=== PATIENT | male | born 1975 | race Two or more races ===

== ENCOUNTER 2024-08-04 15:30 | Emergency (ER) | payer MEDICAID, SELFPAY ==
[2024-08-04 15:49] VITALS: BP 169/113; PULSE 113; RESP 18; TEMP 37.2; O2SAT 96; BMI 37.0
--- NOTE | 2024-08-04 16:07 | XR_ITS ---
Examination: Left elbow 3 views Technique: Elbow AP, oblique, lateral 3 views Exam date and time: 24 1619 hrs. Indications: Patient fell today with into the elbow, elbow pain. Findings: Acute fractures radial head and neck, without major displacement No elbow dislocation Impression: Acute fractures radial head and neck.
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
== END 2024-08-04 18:00 | disposition home or self-care (01) ==
PROVIDERS: Emergency Provider Emergency Medicine; PCP Nurse Practitioner Family
DX: S52.122A Displaced fracture of head of left radius, initial encounter for closed fracture (principal); V98.8XXA Other specified transport accidents, initial encounter
CPT/HCPCS: 29105; 73080; 99283; A4565

== ENCOUNTER 2025-01-18 20:07 | Inpatient (IN) | payer MEDICAID, SELFPAY ==
[2025-01-18 20:14] VITALS: BP 110/77; PULSE 90; RESP 20; TEMP 36.8; O2SAT 95; BMI 33.9
--- NOTE | 2025-01-18 20:15 | EKG_ITS ---
[facility] Test Date: 2025-01-18 Pat Name: LILIA ROCHE Department: Room: - Gender: Male Puller Out: : 1975 Requested By: Montana Bundy Order Number: [id number] Reading MD: Montana Bundy Measurements Intervals [place] Rate: 100 P: 20 NM: 136 QRS: 43 QRSD: 90 T: 48 QT: 334 QTc: 431 Interpretive Statements SINUS TACHYCARDIA NONSPECIFIC T-WAVE ABNORMALITY ABNORMAL RHYTHM ECG Compared to ECG 01/04/2024 07:49:33 T-wave abnormality now present Sinus rhythm no longer present Sinus arrhythmia no longer present /store/S0/[id number]/ecg/[id number].pdf
--- NOTE | 2025-01-18 20:15 | PD.EDABDPN ---
ED Abdominal Pain RME/HPI General Chief Complaint: Abdominal Pain Stated complaint: ABDOMINAL PAIN Time seen by provider: 01/18/25 20:12 Arrival date/time: 01/18/25 20:07 RME / HPI RME / HPI narrative: Dr. Tirado?s Main ED Evaluation: 49yo male with a history of HTN (no medications) JUNE from home presents to the ED for a chief complaint of RLQ pain x 2 days. Patient states his pain radiates down to his testicles. Patient states his pain got significantly worse today and was unable to tolerate the pain, so he came in for evaluation. Patient reports one emetic episode today and continues to feel nauseous. Patient denies any fever, chills, dysuria or any other associated symptoms. PSH includes cholecystectomy. NKA. Related Data Previous Rx's ?Medication ?Instructions ?Recorded ondansetron 4 mg disintegrating 4 mg PO Q12H PRN nausea and 01/04/24 tablet vomiting #20 tabs ondansetron 4 mg disintegrating 4 mg PO Q12H PRN nausea and 01/04/24 tablet vomiting #20 tabs prochlorperazine 25 mg [address] Q12H PRN nausea and 01/04/24 suppository (Compazine) vomiting #12 ea prochlorperazine 25 mg [address] BID PRN nausea and 01/04/24 suppository (Compro) vomiting #12 ea tramadol 50 mg tablet 50 mg PO Q6H PRN pain #20 tabs 01/28/24 Allergies Allergy/AdvReac Type Severity Reaction Status Date / Time No Known Allergies Allergy Verified 08/04/24 15:31 Review of Systems Review of Systems Systems Reviewed: All systems reviewed, normal except as documented Past Medical History Past Medical History CARDIAC: Negative Congestive Heart Failure RESPIRATORY: Negative Chronic Obstructive Pulmonary Disease (COPD) GENITOURINARY: Negative Renal Disease ENDOCRINE: Negative Diabetes Mellitus Type 1 or Diabetes Mellitus Type 2 Social History SMOKING STATUS: Never smoker ED Exam Narrative Physical exam: GENERAL APPEARANCE: alert and oriented x 4, well-developed, well-nourished, in [id number] pain distress VITALS: All vitals were reviewed and the pulse ox is 95% on room air, which is normal according to my interpretation. HEENT: Normocephalic, atraumatic; pupils equal, round, reactive to light; EOMI; mucous membranes pink, moist; oropharynx clear NECK: Supple LUNGS: CTABL; no wheezes, no rales, no rhonchi HEART: Regular rate, regular rhythm; normal S1, S2; no murmurs ABDOMEN: non distended; normal BS; soft, severe RLQ tenderness with rebound and voluntary guarding EXTREMITIES: atraumatic; no edema NEUROLOGIC: awake; alert and oriented x4; cranial nerves II-XII grossly intact; no focal sensory or motor deficits PSYCHIATRIC: appropriate mood and affect SKIN: warm, dry, normal color; no rashes Course Quality Measures Possible source: GI tract/intra-abdominal Blood cultures ordered: yes Antibiotic ordered: Yes Pertinent labs: 01/18/25 01/19/25 20:55 01:19 Lactic Acid 2.1 H mMol/L Pending (0.4-2.0) Procalcitonin 0.09 ng/ml (0.0-0.49) sepsis Orders Category Date Time Status CT Screening NOW Care 01/18/25 20:18 Active Steel Rod Buster STAT Care 01/18/25 20:15 Active Continuous Pulse Oximetry STAT Care 01/18/25 20:15 Completed EKG (ED ONLY) *Do not use* NOW Care 01/18/25 20:15 Completed Insert IV STAT Care 01/18/25 20:15 Active NPO STAT Care 01/18/25 20:15 Active Consult to General Surgery Stat Cons 01/19/25 01:[address] abdomen pelvis wo/w con Stat Exams 01/18/25 20:17 Taken EKG (ED Only) Stat Exams 01/18/25 20:15 Draft XR chest 1V portable Stat Exams 01/18/25 20:17 Completed Alcohol, Blood Medical Stat Lab 01/18/25 20:55 Completed Blood Culture (Lab) Stat Lab 01/18/25 20:58 Received CBC Stat Lab 01/18/25 20:55 Completed Comprehensive Metabolic Panel Stat Lab 01/18/25 20:55 Completed Drug Screen,Urine Stat Lab 01/18/25 20:56 Completed Lactate (Lactic Acid) Stat Lab 01/18/25 20:55 Completed Lactic Acid, 3 HR Stat Lab 01/19/25 01:19 Received Lipase Stat Lab 01/18/25 20:55 Completed Magnesium Stat Lab 01/18/25 20:55 Completed Procalcitonin Stat Lab 01/18/25 20:55 Completed Prothrombin Time with INR Stat Lab 01/18/25 20:55 Completed Urinalysis Stat Lab 01/18/25 20:56 Completed Acetaminophen Ivpb [Ofirmev Inj] Med 01/18/25 22:07 Discontinued 1,000 mg in 100 ml IV X1 HYDROmorphone INJ [Dilaudid Inj] Med 01/18/25 20:15 Discontinued 1 mg IVP X1 ONE HYDROmorphone INJ [Dilaudid Inj] Med 01/19/25 01:05 Discontinued 1 mg IVP X1 ONE Ondansetron Inj [Zofran Inj] Med 01/18/25 20:15 Discontinued 4 mg IV X1 ONE Piper/Tazo 3.375 gm Premix [Zosyn] Med 01/18/25 20:16 Discontinued 3.375 gm in 50 ml IV X1 Sodium Chloride 0.9% 1000 ml [Ns] 1,000 ml Med 01/18/25 20:15 Discontinued IV 999 mls/hr Sodium Chloride 0.9% 1000 ml [Ns] 1,000 ml Med 01/19/25 00:50 Discontinued IV 999 mls/hr Vital Signs Vital signs: Vital Signs Temperature 98.3 F 01/18/25 20:14 Pulse Rate 90 01/18/25 20:14 Respiratory Rate 20 01/18/25 20:14 Blood Pressure 110/77 01/18/25 20:14 Pulse Oximetry (%) 95 01/18/25 20:14 Oxygen Delivery Method Room Air 01/18/25 20:14 Abdominal Pain MDM MDM Narrative MDM Narrative:: Scribe Attestation: 01/18/25 Cassy Richards am scribing for and in the presence of Dr. Tirado. I offered the patient narcotics on my initial evaluation, but he states I don't take narcotics . He initially agreed to pain medication, but later declined. IV Tylenol ordered. 0101: Sepsis alert initiated due to the patient being tachycardic, tachypneic, and having an elevated WBC count. Orders made at this time are congruent with ED Adult Sepsis Order List. NS IVF was started at 2220. 0105: Patient states he is now willing to take narcotics. Dilaudid ordered. 0157: Discussed case with Dr. Parmar from general surgery regarding consultation. Discussed patients ED course, exam findings, labs, and radiology results. States she will admit the patient. Patient data External records reviewed:: [facility] previous records (Per chart review, patient was seen here on 01/04/24 for abdominal pain.) Clinical information provided by:: patient Social determinants that could affect healthcare access:: none Patient has the following chronic illnesses:: none How is presenting disease/condition affected by chronic disease/condition?: no chronic disease Evaluation data The following diagnostics were reviewed and interpreted by me:: lab results, radiology exam(s) and EKG tracing(s) Lab and/or radiology exams considered but not ordered:: none Interpretation Summary: WBC count is 18.0, PT and INR are normal, Glucose is 181, Lactic Acid is 2.1, Lipase is normal, Procalcitonin is normal, UA is unremarkable, UDS is negative, Blood Alcohol is negative, according to my interpretation. CXR shows normal cardiac silhouette, normal sharp diaphragmatic edge, no infiltrates, normal costophrenic angles, according to my interpretation. EKG done at 2100, sinus tachycardia, rate of 100, normal axis, no ectopy, no acute ischemia, according to my interpretation. Telerad Preliminary Report Draft Patient: LILIA ROCHE. Record#: [id number] Birthdate: 1975 Age/Sex: 49 / M Location: [facility] Attending Dr: Ordering Physician: Date of Service: Procedure(s): Accession Number(s): cc: ~ CT scan of the abdomen and pelvis without and with intravenous contrast (axial sections with sagittal and coronal reformats): January 18, 2025 at 2358 hours Clinical History: Right lower quadrant pain with nausea and vomiting. Comparison: No prior study is available for comparison. Findings: The appendix is thickened, measuring 1.8 cm (images 145-165) with wall enhancement and extensive periappendiceal fat stranding and a trace fluid. There is a 1.3 cm appendicolith at its base. There is no free air. No evidence of bowel obstruction. There is mildly prominent fluid filled small bowel loops and demonstrating scattered air-fluid levels, suggestive of ileus. There are multiple colonic diverticula with evidence of subtle pericolic fat stranding Fatty infiltration of the liver is noted. The gallbladder is surgically absent. There is a 7 mm calculus in the right kidney. There is mild splenomegaly. The pancreas, adrenals and left kidney are unremarkable. The urinary bladder is unremarkable. There is mild prostatomegaly. There is small fat-containing right inguinal hernias. Degenerative changes are identified in the spine. 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 There is anterolisthesis of L5 on S1. Bibasilar streaky atelectasis is present. A small hiatal hernia is present. Impression: 1. Acute appendicitis with extensive periappendiceal fat stranding and a trace fluid, the possibility of evolving microperforation cannot be entirely excluded. Recommend clinical correlation and follow-up. 2. Multiple colonic diverticula with evidence of subtle pericolic fat stranding, evolving diverticulitis cannot be entirely excluded. Recommend follow-up. 3. Other findings as described above. Report Electronically Signed By: Charles Mckay 01/19/2025 1:50:28 AM Medications / Prescriptions Medications or Prescriptions considered but not ordered:: none Medication administrations:: Medication Administration History Discontinued Medications Hydromorphone HCl (Hydromorphone Inj 2 Mg/Ml Vial) 1 mg IVP X1 ONE Stop: 01/18/25 20:16 Last Admin: 01/18/25 22:21 Dose: Not Given Documented By: PRAVEEN Non-Admin Reason: Cancelled by Provider Hydromorphone HCl (Hydromorphone Inj 2 Mg/Ml Vial) 1 mg IVP X1 ONE Stop: 01/19/25 01:06 Sodium Chloride (Ns) 1,000 mls @ 999 mls/hr IV .Q1H1M ONE Stop: 01/18/25 21:15 Last Admin: 01/18/25 22:20 Dose: 999 mls/hr Documented By: PRAVEEN Piperacillin/Tazobactam/Dextrose (Zosyn) 3.375 gm in 50 mls @ 100 mls/hr IV X1 ONE Stop: 01/18/25 20:45 Last Admin: 01/18/25 22:20 Dose: 100 mls/hr Documented By: PRAVEEN Acetaminophen (Ofirmev Inj) 1,000 mg in 100 mls @ 250 mls/hr IV X1 ONE Stop: 01/18/25 22:30 Last Admin: 01/18/25 22:18 Dose: 250 mls/hr Documented By: PRAVEEN Sodium Chloride (Ns) 1,000 mls @ 999 mls/hr IV .Q1H1M ONE Stop: 01/19/25 01:50 Ondansetron HCl (Ondansetron Inj 2 Mg/Ml Inj 2 Ml) 4 mg IV X1 ONE; Protocol Stop: 01/18/25 20:16 Last Admin: 01/18/25 22:21 Dose: Not Given Documented By: PRAVEEN Non-Admin Reason: Cancelled by Provider see above Consultations Consultation(s) initiated? (list below): Yes Diagnosis Differential diagnosis abdominal pain: acute appendicitis, diverticulitis, small bowel obstruction and other (renal colic) Most likely diagnosis given after review of the tests above:: acute appendicitis Admission Indicated Admission indicated?: indicated Admission Request Was there a request for admission?: Yes Admission Attestation Admission request attestation: Discussed case with [] from Hospitalist service regarding admission. Discussed patients ED course, exam findings, labs, and radiology results. The Hospitalist [agrees,declines] to accept the patient for admission. Disposition Plan Disposition Plan: Admit Critical Care Time Critical Care Time Critical Care Time: Yes Total Critical Care Time (min.): 40 Attestation: The high probability of sudden, clinically significant deterioration in the patient?s condition required the highest level of my preparedness to intervene urgently. The services I provided to this patient were to treat and/or prevent clinically significant deterioration. Services included the following: chart data review, reviewing nursing notes and/or old charts, documentation time, furniture rental consultant collaboration regarding findings and treatment options, medication orders and management, direct patient care, vital sign assessments and ordering, interpreting and reviewing diagnostic studies and lab tests. Aggregate critical care time includes only time during which I was engaged in work directly related to the patient?s care, as described above, whether at bedside or elsewhere in the Emergency Department. It did not include time spent performing other reported procedures or the services of residents, students, nurses or physician assistants. Discharge Plan Plan Patient Disposition: Admit Acute Care w/in Hospital Discharge Disposition comment: Admitted to Dr. Parmar Prescriptions/Referrals Prescriptions/Med Rec: No Action prochlorperazine [Compro] 25 mg suppository [address] BID PRN (Reason: nausea and vomiting) Qty: 12 0RF ondansetron 4 mg tablet,disintegrating 4 mg PO Q12H PRN (Reason: nausea and vomiting) Qty: 20 0RF prochlorperazine [Compazine] 25 mg suppository [address] Q12H PRN (Reason: nausea and vomiting) Qty: 12 0RF ondansetron 4 mg tablet,disintegrating 4 mg PO Q12H PRN (Reason: nausea and vomiting) Qty: 20 0RF tramadol 50 mg tablet 50 mg PO Q6H PRN (Reason: pain) Qty: 20 0RF Referrals: No Primary/Family,Physician [Primary Care Provider] - In 1 week Problem List Clinical Impression: Acute appendicitis Patient/Caregiver Discharge Instructions Print Language: Spanish Stand Alone Forms: [facility] Award Info., Patient Portal Info Letter
--- NOTE | 2025-01-18 20:17 | XR_ITS ---
Examination: AP chest single view TECHNIQUE: AP portable semiupright chest single view Date and time: January 18, 2025 2103 hours INDICATIONS: Lower chest pain and abdominal pain today FINDINGS: Suspicious for early left basilar pneumonia. Normal heart size Mild osteopenia. No free air IMPRESSION: Suspicious for early left base pneumonia
--- NOTE | 2025-01-18 20:17 | XR_ITS ---
Examination: CT abdomen, without intravenous contrast. CT pelvis, without intravenous contrast. CT abdomen, with intravenous contrast. CT pelvis, with intravenous contrast. 2-D sagittal coronal reconstructions. Date and time of exam:January 18, 2025 11:58 PM INDICATIONS: Onset right-sided flank pain today, history kidney stones COMPARISON: January 04, 2024 CTDI: vol (mGy) 10.6 DLP: (mGycm) 643 Technique: Multiple 3.0 axial images of the abdomen and pelvis without intravenous contrast, 3.0 mm slice thickness. Multiple 3.0 postcontrast images abdomen and pelvis also obtained, post intravenous injection 60 cc [id number] 2-D sagittal and coronal reconstructions. Low dose protocols were performed. One or more of the following dose reduction techniques were used; automated exposure control, adjustment of the mA and/or KV according to patient size, use of iterative reconstruction technique. Findings: Diffuse fatty infiltration throughout the liver Absent gallbladder The spleen is not enlarged No pancreatic or adrenal mass 7 mm upper pole right renal calculus Aorta normal size Acute appendicitis, enlarged inflamed appendix with appendicoliths and prominent pericecal inflammatory changes, appendix medial to the cecum coronal images 69 through 82 No martinez pericecal abscess Small bowel ileus Mild prostatomegaly Tiny fat-containing inguinal hernia Grade 1 spondylolisthesis of L5 on S1 with advanced degenerative disc disease at this level Impression: Acute appendicitis with localized perforation No pelvic abscess
[2025-01-18 20:53] VITALS: PULSE 94; RESP 22; O2SAT 95
[2025-01-18 21:02] LABS: Collection Type, Urine Clean Catch
[2025-01-18 21:19] LABS: Lactate (Lactic Acid) 2.1 mMol/L (0.4-2.0)
[2025-01-18 21:22] LABS: Basophils # (Auto) 0.1 Thou/mm3 (0.0-0.2); Basophils % (Auto) 0 % (0-2.5); Eosinophils % (Auto) 0 % (0-10); Hematocrit 44.7 % (41.0-53.0); Hemoglobin 15.9 g/dL (13.5-16.0); Immature Granulocytes % (Auto) 0 % (0-0); Immature Granulocytes Auto 0.07 Thou/mm3 (0.00-0.00); Lymphocytes % (Auto) 5 % (10-50); Mean Corpuscular HGB Conc 35.6 g/dl (31.0-37.0); Mean Corpuscular Hemoglobin 29.6 pg (25.0-35.0); Mean Corpuscular Volume 83 fL (80-100); Monocytes # (Auto) 1.3 Thou/mm3 (0.0-0.8); Monocytes % (Auto) 7 % (0-12); Neutrophils # (Auto) 15.6 Thou/mm3 (1.8-7.7); Neutrophils % (Auto) 87 % (37-80); Nucleated Red Blood Cell % 0 /100 WBC (0); Platelet Count 272 Thou/mm3 (140-440); RDW Standard Deviation 37.9 fL (35.1-43.9); Red Blood Count 5.37 Miln/mm3 (4.50-5.90)
[2025-01-18 21:23] LABS: Amphetamine/Methamp Scrn,U Negative (Negative); Barbiturate Screen,Urine Negative (Negative); Benzodiazepines Screen,Urine Negative (Negative); Benzoylecgonine Screen, Ur Negative (Negative); Fentanyl Screen,Urine Negative (Negative); Opiate Screen,Urine Negative (Negative); THC Screen,Urine Negative (Negative)
[2025-01-18 21:27] LABS: Bilirubin,Urine Negative (Negative); Blood,Urine Negative (Negative); Clarity,Urine Clear (Clear/Hazy); Color,Urine Yellow (Lt Yel-Yel); Glucose, Urine Negative (Negative); Ketones,Urine 1+ (Negative); Leukocyte Esterase,Urine Negative (Negative); Nitrite,Urine Negative (Negative); PH,Urine 5.5 (5.0-7.0); Protein,Urine Trace (Neg - Trace); Specific Gravity,Urine 1.032 (1.001-1.035); Urobilinogen,Urine Negative mg/dL (0.0-1.0)
[2025-01-18 21:40] LABS: Mucus,Urine 1+ /lpf; RBC,Urine 1 /hpf (0-3); Squamous Epithelial Cell,Urine 5 /hpf (0-5); WBC,Urine 2 /hpf (0-5)
[2025-01-18 21:43] LABS: INR 1.1 (0.9-1.3); Prothrombin Time 11.8 Seconds (9.0-12.2)
[2025-01-18 21:57] LABS: Alanine Aminotransferase 37 U/L (10-49); Albumin, Serum 4.9 gm/dL (3.5-5.0); Alcohol, Blood Medical < 3.0 mg/dL (0-10.0); Alkaline Phosphatase 71 U/L (46-116); Anion Gap 12 (7-16); Aspartate Amino Transferase 22 U/L (0-34); BUN/Creatinine Ratio 13 Ratio (12-20); Bilirubin,Total 0.7 mg/dL (0.3-1.2); Blood Urea Nitrogen 13 mg/dL (9-23); Calcium 9.4 mg/dL (8.3-10.6); Calcium (Corrected) 9.4 mg/dL (8.5-10.1); Carbon Dioxide 24.5 mMol/L (20.0-31.0); Chloride 103 mMol/L (98-107); Estimated Creatinine Clearance 116.2 mL/min (>60); Globulin 2.5 gm/dL (2.3-3.5); Glucose 181 mg/dL (74-106); Lipase 27 U/L (12-53); Magnesium 1.6 mg/dL (1.6-2.6); Osmolality,Calculated 282 (275-295); Potassium 4.1 mMol/L (3.4-5.1); Sodium 139 mMol/L (136-145); Total Protein 7.4 gm/dL (5.7-8.2); eGFR > 60 See Note
[2025-01-18 22:03] LABS: Procalcitonin 0.09 ng/ml (0.0-0.49)
[2025-01-18] MEDS: ACETAMINOPHEN IVPB 1,000 MG/100 ML VIAL 250 MG IV (22:18)
[2025-01-18] MEDS: PIPER/TAZO 3.375 GM PREMIX 3.375 GM/50 ML BAG IV (22:20)
[2025-01-18] MEDS: SODIUM CHLORIDE 0.9% 1000 ML 1,000 ML 999 ML IV (22:20)
[2025-01-18 23:15] VITALS: BP 151/98; PULSE 108; RESP 23; TEMP 37.5; O2SAT 93
[2025-01-19] VITALS (22 sets, daily range): BP systolic 112–144; BP diastolic 73–98; PULSE 74–127; RESP 15–27; TEMP 36.6–37.7; O2SAT 89–97; BMI 33.9
[2025-01-19 00:15] LABS: Reflex Lactate? Y
[2025-01-19 01:34] LABS: Lactic Acid, 3 HR 1.9 mMol/L (0.4-2.0)
--- NOTE | 2025-01-19 01:51 | PRELIM_ITS ---
CT scan of the abdomen and pelvis without and with intravenous contrast (axial sections with sagittal and coronal reformats): January 18, 2025 at 2358 hours Clinical History: Right lower quadrant pain with nausea and vomiting. Comparison: No prior study is available for comparison. Findings: The appendix is thickened, measuring 1.8 cm (images 145-165) with wall enhancement and extensive periappendiceal fat stranding and a trace fluid. There is a 1.3 cm appendicolith at its base. There is no free air. No evidence of bowel obstruction. There is mildly prominent fluid filled small bowel loops and demonstrating scattered air-fluid levels, suggestive of ileus. There are multiple colonic diverticula with evidence of subtle pericolic fat stranding Fatty infiltration of the liver is noted. The gallbladder is surgically absent. There is a 7 mm calculus in the right kidney. There is mild splenomegaly. The pancreas, adrenals and left kidney are unremarkable. The urinary bladder is unremarkable. There is mild prostatomegaly. There is small fat-containing right inguinal hernias. Degenerative changes are identified in the spine. 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 There is anterolisthesis of L5 on S1. Bibasilar streaky atelectasis is present. A small hiatal hernia is present. Impression: 1. Acute appendicitis with extensive periappendiceal fat stranding and a trace fluid, the possibility of evolving microperforation cannot be entirely excluded. Recommend clinical correlation and follow-up. 2. Multiple colonic diverticula with evidence of subtle pericolic fat stranding, evolving diverticulitis cannot be entirely excluded. Recommend follow-up. 3. Other findings as described above. Report Electronically Signed By: Charles Mckay 01/19/2025 1:50:28 AM [EST]
[2025-01-19] MEDS: HYDROmorphone INJ 2 MG/ML VIAL 1 MG IVP (02:25)
[2025-01-19] MEDS: SODIUM CHLORIDE 0.9% 1000 ML 1,000 ML 999 ML IV (02:25)
[2025-01-19] MEDS: HYDROmorphone INJ 2 MG/ML VIAL 0.5 MG IVP (06:37)
[2025-01-19] MEDS: PIPER/TAZO INJ 4.5 GM in SODIUM CHLORIDE 0.9% (POP) 100 ML IV ×3 (09:19→22:07)
[2025-01-19] MEDS: SODIUM CHLORIDE 0.9% 1000 ML 1,000 ML 125 ML IV (09:21)
[2025-01-19] MEDS: ONDANSETRON INJ 2 MG/ML INJ 2 ML 4 MG IV (09:56)
[2025-01-19] MEDS: MORPHINE SULF INJ 10 MG/ML VIAL 4 MG IVP ×2 (09:57→16:16)
--- NOTE | 2025-01-19 10:00 | PC.NURSE ---
Dr Parmar at bedside speaking with patient.
--- NOTE | 2025-01-19 10:17 | PD.SURHP ---
HPI Date of Admission 01/19/25 08:37 HPI 49M presenting with abdominal pain and nausea. Patient reports pain began 2 days ago in the morning, initially in the epigastrium but then radiating to the right lower quadrant, which progressively worsened prompting him to seek care in the ER. Pain associated with nausea and an episode of vomiting, with no dysuria or changes in bowel habits. In ER patient has had temp of 99, tachycardia and CT showing signs of acute appendicitis with localized perforation. Patient reports ongoing 10 out of 10 pain despite medications Of note pt has not undergone colonoscopy PMH: None PSH: Cholecystectomy Meds: None Allergies: NKDA Social history: Non-smoker Family history: No known CRC but two maternal uncles had pancreatic cancer Review of Systems Review of Systems ROS Unobtainable: All systems reviewed & no additional complaints except as documented Meds Home Medications and Allergies Allergies Allergy/AdvReac Type Severity Reaction Status Date / Time No Known Allergies Allergy Verified 08/04/24 15:31 Exam Vital Signs Temp Pulse Resp BP Pulse Ox O2 Del Method O2 Flow Rate 99.8 F 113 H 18 143/81 H 93 L Room Air 2 01/19/25 09:58 01/19/25 09:58 01/19/25 09:58 01/19/25 09:58 01/19/25 09:58 01/19/25 09:58 01/19/25 08:15 Constitutional Constitutional: mild distress Routine Respiratory Exam Respiratory: Present no resp distress Routine Abdominal Exam Abdominal: Present soft, tenderness (Moderate tenderness right lower quadrant) and distended (Mild distention); Absent rebound or guarding Results Results: Laboratory Laboratory results: results reviewed Results: Imaging CT scan - abdomen: report reviewed and image reviewed Assessment & Plan Plan 49M presenting with signs and symptoms of acute appendicitis with localized perforation. I explained to the patient that surgery in the setting of perforated appendicitis confers a risk of injury to nearby structures as well as the possibility of not being able to safely remove the appendix, and that antibiotics can be curative, however given his severe pain patient prefers to pursue surgery. I explained that I will perform diagnostic laparoscopy, with with appendectomy if it is safe, and that either way I can irrigate the area and may place a drain to prevent a secondary infection. I enumerated risks of bowel injury necessitating fecal diversion, need for conversion to laparotomy, bleeding and hernia. Patient expressed understanding and agrees to proceed OR for diagnostic laparoscopy, washout, possible appendectomy, possible drain placement Quality Measures Quality Measures sepsis Current suspected stage: sepsis Possible source: GI tract/intra-abdominal Blood cultures ordered: yes Antibiotic ordered: Yes
--- NOTE | 2025-01-19 10:52 | PC.CC ---
Patient is a 49 year-old male who presents to the hospital for Acute Appendicitis with Perforation. Queenie GOULD made llra-[id number] contact with patient. ASW introduced self, role, and reason for visit. Patient appeared alert and oriented to self, location, and situation. Patient was pleasant and engaged in initial assessment. Patient confirmed information on demographics and reports to living with his sister and daughter, Trina Garland . Per patient, if he is unable to make his own medical decisions his daughter would be his medical decision maker. At home patient ambulates independently and completes his own ADLs. Patient does not use any DME at home. Patient does not have a primary care provider. Upon discharge patient plans to return home. relocation services specialist to follow up with any discharge needs.
--- NOTE | 2025-01-19 11:23 | PC.NURSE ---
Report given to Rn, patient will be going to surgery.
--- NOTE | 2025-01-19 11:39 | PC.NURSE ---
@ 0700 am Assumed care of patient, patient appears to be sleeping in no distress. Patient opens eyes to name and responds. Call light is within reach.
--- NOTE | 2025-01-19 12:56 | ESOP_ITS ---
Date of Procedure 01/19/25 Pre Op Diagnosis Acute appendicitis Post Op Diagnosis Gangrenous perforated appendicitis Procedure Diagnostic laparoscopy, partial appendectomy, washout, drain placement Findings Perforated appendix with gangrenous base Procedure Description After discussion of risks and benefits including the possibility that the appendix could not be safely removed, patient was brought to the operating room, SCDs were placed and general anesthesia was induced. He had already received preoperative antibiotics and was prepped and draped in the usual sterile fashion after timeout an infraumbilical incision was made with a #15 blade and the skin was elevated. A Veress needle was placed through the incision and proper posit ioning was confirmed with a drop test. Of note a long Veress needle was required as the standard Veress needle did not reach the peritoneum. Once proper positioning was confirmed the abdomen was insufflated to 15 mmHg and the Veress needle was exchanged for a 5 mm camera using a Visiport technique. Again a long port was required as the standard 5 mm port did not reach the peritoneum. There were no signs of injury from the point of entry. 2 additional ports were placed under direct vision, one 5 mm in the suprapubic region and one 5 mm in the left lower quadrant. Patient was placed in Trendelenburg with left side down. The small bowel was noted to be dilated which was consistent with a CT finding of ileus, and there was pus in the right lower quadrant as well as in the pelvis. The appendix was easily identified by tracing attending of the colon and it was noted to have a gangrenous base from which pus was emanating. I opted not to dissect out this portion of the appendix due to concern that it would not heal well and that there would be dehiscence of the staple line. Instead I dissected the mesoappendix from the midportion of the appendix and transected at this level using a 45 mm blue load stapler. The area was gently irrigated and there were no signs of bleeding. The pelvis was also irrigated and there were no signs of bleeding. A 15 Tongan round drain was placed through the left lower quadrant port into the right lower quadrant and sutured to the skin using a 2-0 nylon. The specimen was removed in an Endo Catch bag via the infraumbilical port and the infraumbilical fascia was closed with 0 Vicryl suture using a Guerrero-Hema. Incisions were irrigated and infiltrated with half percent Marcaine for a total of 20 cc. Incisions were closed with 4-0 Monocryl and reinforced with Dermabond. Patient was extubated and brought to PACU in stable condition Pathology / specimen Other (Appendix) Estimated Blood Loss 20 Surgeon Kaylene Parmar MD Surgical Staff Operation Date: 01/19/25 11:30 <No data on this case meets the specified criteria>
--- NOTE | 2025-01-19 13:01 | SUR.PHASEI ---
received report from SHANIKA Neri and LONNIE Conklin. Pt resting with eyes closed, but arousable to voice and touch. x2 dermabond dressing to abd CDI, x1 dressing 4x4 gauze to abd CDI. DAI intact, draining well. IV in place, no s/s of infiltration or redness to site. abd soft on palpation.
--- NOTE | 2025-01-19 13:27 | SUR.PHASEI ---
pt continues to be asleep and resting well. vss. no distress noted. dressings remain CDI
--- NOTE | 2025-01-19 13:35 | SUR.PHASEI ---
VSS, dressings remain CDI, pt denies any pain at this time, no distress noted. offiered patient ice chips and water, pt declined.
--- NOTE | 2025-01-19 13:58 | SUR.PHASEI ---
pt continues to rest, pt is snoring however easily arousable to voice and touch. dressings remain CDI, VSS, NO DISTRESS NOTED
--- NOTE | 2025-01-19 14:20 | SUR.PHASEI ---
Pt continues to recover well. Pt resting and snoring, vss, dressings remain CDI, DAI draining well.
--- NOTE | 2025-01-19 15:11 | SUR.PHASEI ---
Pt resting, aroused by voice. Pt A&o X4. Pt recovering well, vss. dressing remains CDI, IV remains free of infiltration or redness. pt denies any pain at this time. report given to SHANIKA Cui.
[2025-01-19] MEDS: SODIUM CHLORIDE 0.9% 1000 ML 1,000 ML 50 ML IV (16:14)
[2025-01-19] MEDS: ACETAMINOPHEN IVPB 1,000 MG/100 ML VIAL 250 MG IV (17:22)
[2025-01-19] MEDS: KETOROLAC INJ 30 MG/ML VIAL 15 MG IVP (22:02)
[2025-01-20] VITALS (8 sets, daily range): BP systolic 123–167; BP diastolic 81–104; PULSE 79–105; RESP 16–20; TEMP 36.1–36.6; O2SAT 92–94
[2025-01-20] MEDS: ACETAMINOPHEN IVPB 1,000 MG/100 ML VIAL 250 MG IV ×4 (00:07→22:09)
[2025-01-20 05:47] LABS: Basophils % (Auto) 0 % (0-2.5); Eosinophils % (Auto) 0 % (0-10); Hemoglobin 14.7 g/dL (13.5-16.0); Immature Granulocytes % (Auto) 1 % (0-0); Immature Granulocytes Auto 0.11 Thou/mm3 (0.00-0.00); Lymphocytes % (Auto) 5 % (10-50); Mean Corpuscular Hemoglobin 29.5 pg (25.0-35.0); Mean Corpuscular Volume 84 fL (80-100); Monocytes # (Auto) 1.2 Thou/mm3 (0.0-0.8); Monocytes % (Auto) 6 % (0-12); Neutrophils # (Auto) 17.1 Thou/mm3 (1.8-7.7); Neutrophils % (Auto) 88 % (37-80); Nucleated Red Blood Cell % 0 /100 WBC (0); Platelet Count 209 Thou/mm3 (140-440); RDW Standard Deviation 38.6 fL (35.1-43.9); Red Blood Count 4.98 Miln/mm3 (4.50-5.90); White Blood Count 19.4 Thou/mm3 (3.8-10.6)
[2025-01-20] MEDS: PIPER/TAZO INJ 4.5 GM in SODIUM CHLORIDE 0.9% (POP) 100 ML IV ×3 (05:52→22:09)
[2025-01-20 06:09] LABS: Anion Gap 7 (7-16); BUN/Creatinine Ratio 13 Ratio (12-20); Blood Urea Nitrogen 13 mg/dL (9-23); Carbon Dioxide 24.6 mMol/L (20.0-31.0); Chloride 105 mMol/L (98-107); Estimated Creatinine Clearance 116.2 mL/min (>60); Glucose 136 mg/dL (74-106); Osmolality,Calculated 275 (275-295); Phosphorous 2.7 mg/dL (2.4-5.1); Potassium 3.7 mMol/L (3.4-5.1); Sodium 137 mMol/L (136-145); eGFR > 60 See Note
[2025-01-20] MEDS: MORPHINE SULF INJ 10 MG/ML VIAL 4 MG IVP (06:41)
[2025-01-20] MEDS: LIDOCAINE 5% 1 PATCH TOP (10:00)
--- NOTE | 2025-01-20 10:05 | PC.NURSE ---
Pt feeling okay and wants to try a regular diet. Dr. maguire discontinued IV tylenol and morphine. switched to PO pain meds. Dr. Maguire also added lidcaine pain patch.
[2025-01-20] MEDS: GABAPENTIN 300 MG CAPSULE PO ×2 (11:25→20:41)
[2025-01-20] MEDS: MORPHINE SULF INJ 10 MG/ML VIAL 4 MG IV ×3 (11:25→21:32)
--- NOTE | 2025-01-20 11:30 | PC.NURSE ---
Pt complaining of severe pain. Does not want to try the PO medications. Dr. maguire notified. Dr leonardo in orders for patient to begin IV morphine and gabapentin.
--- NOTE | 2025-01-20 13:00 | PC.NURSE ---
Pt did not eat lunch. Not tolerating food at this time. Pt complains that morphine is only lasting for a short time and pt is having severe pain again. Pt does not want to try the gabapentin, or toradol.
[2025-01-20] MEDS: hydrALAZINE INJ 20 MG/ML VIAL 10 MG IV (13:15)
--- NOTE | 2025-01-20 13:17 | PC.NURSE ---
Pt's blood pressure has been elevated today. Dr. Parmar aware. Order was placed for hydralazine with parameters
--- NOTE | 2025-01-20 15:10 | PC.NURSE ---
Pt complaining that he is in severe pain. Encouraged patient to get up in bed and try to move around. pt had one occurrence of vomit Contacted Dr. Parmar. said the episode of vomit is normal. added IV tylenol and PO tramadol. Pt does not want to take tramadol or try the IV tylenol. Encouraged patient to try the IV tylenol and continue the morphine when it is due. Pt has agreed.
--- NOTE | 2025-01-20 16:52 | PC.NURSE ---
[facility] down time occurred on 01/20/2025 from [id number].
[2025-01-20] MEDS: SODIUM CHLORIDE 0.9% 1000 ML 1,000 ML 50 ML IV (17:29)
--- NOTE | 2025-01-20 18:00 | PC.NURSE ---
Went by to check on patient. Patient resting in bed, sleeping. No signs of distress or pain. will continue to assess.
[2025-01-20] MEDS: DOCUSATE SOD 100 MG CAPSULE PO (20:41)
[2025-01-21] VITALS (10 sets, daily range): BP systolic 133–165; BP diastolic 98–121; PULSE 69–115; RESP 16–20; TEMP 36.2–37.1; O2SAT 92–98
[2025-01-21] MEDS: MORPHINE SULF INJ 10 MG/ML VIAL 4 MG IV ×5 (01:49→23:11)
[2025-01-21] MEDS: ACETAMINOPHEN IVPB 1,000 MG/100 ML VIAL 250 MG IV ×3 (04:04→17:36)
[2025-01-21] MEDS: PIPER/TAZO INJ 4.5 GM in SODIUM CHLORIDE 0.9% (POP) 100 ML IV ×3 (05:19→21:21)
[2025-01-21 05:54] LABS: Basophils % (Auto) 0 % (0-2.5); Eosinophils # (Auto) 0.1 Thou/mm3 (0.0-0.5); Eosinophils % (Auto) 0 % (0-10); Hematocrit 41.5 % (41.0-53.0); Hemoglobin 14.5 g/dL (13.5-16.0); Immature Granulocytes % (Auto) 1 % (0-0); Immature Granulocytes Auto 0.07 Thou/mm3 (0.00-0.00); Lymphocytes # (Auto) 1.3 Thou/mm3 (1.0-4.8); Lymphocytes % (Auto) 9 % (10-50); Mean Corpuscular HGB Conc 34.9 g/dl (31.0-37.0); Mean Corpuscular Hemoglobin 29.4 pg (25.0-35.0); Mean Corpuscular Volume 84 fL (80-100); Monocytes # (Auto) 1.2 Thou/mm3 (0.0-0.8); Monocytes % (Auto) 8 % (0-12); Neutrophils # (Auto) 12.6 Thou/mm3 (1.8-7.7); Neutrophils % (Auto) 82 % (37-80); Nucleated Red Blood Cell % 0 /100 WBC (0); Platelet Count 211 Thou/mm3 (140-440); RDW Standard Deviation 40.3 fL (35.1-43.9); Red Blood Count 4.94 Miln/mm3 (4.50-5.90); White Blood Count 15.3 Thou/mm3 (3.8-10.6)
[2025-01-21 06:14] LABS: Anion Gap 10 (7-16); BUN/Creatinine Ratio 15 Ratio (12-20); Blood Urea Nitrogen 12 mg/dL (9-23); Calcium 8.8 mg/dL (8.3-10.6); Carbon Dioxide 25.1 mMol/L (20.0-31.0); Chloride 105 mMol/L (98-107); Creatinine (Component) 0.8 mg/dL (0.6-1.3); Estimated Creatinine Clearance 145.2 mL/min (>60); Glucose 118 mg/dL (74-106); Magnesium 2.1 mg/dL (1.6-2.6); Osmolality,Calculated 280 (275-295); Potassium 3.9 mMol/L (3.4-5.1); Sodium 140 mMol/L (136-145); eGFR > 60 See Note
--- NOTE | 2025-01-21 09:25 | PD.SURPROG ---
Documentation for date of: 01/21/25 Subjective Subjective Brief History: 49M presenting with abdominal pain and nausea. Patient reports pain began 2 days ago in the morning, initially in the epigastrium but then radiating to the right lower quadrant, which progressively worsened prompting him to seek care in the ER. Pain associated with nausea and an episode of vomiting, with no dysuria or changes in bowel habits. In ER patient has had temp of 99, tachycardia and CT showing signs of acute appendicitis with localized perforation. Patient reports ongoing 10 out of 10 pain despite medications Of note pt has not undergone colonoscopy PMH: None PSH: Cholecystectomy Meds: None Allergies: NKDA Social history: Non-smoker Family history: No known CRC but two maternal uncles had pancreatic cancer Narrative: Pt reports stable pain, he was having nausea yesterday so returned to [facility]D but states this is improved he just still has minimal appetite. He has passed gas but not yet had a BM, remaining afebrile, walked a bit yesterday Exam Vital Signs Temp Pulse Resp BP Pulse Ox O2 Del Method O2 Flow Rate 97.3 F 106 H 18 157/121 H 92 L Room Air 1 01/21/25 08:00 01/21/25 08:00 01/21/25 08:00 01/21/25 08:00 01/21/25 08:00 01/21/25 08:00 01/21/25 04:00 Constitutional Constitutional: no acute distress Routine Respiratory Exam Respiratory: Present no resp distress Routine Abdominal Exam Abdominal: Present soft, tenderness (moderate lower abd tenderness), distended (moderate distention) and drain (DAI with serosanguinous output); Absent rebound or guarding Results Results: Laboratory Laboratory results: results reviewed Assessment & Plan Plan 49M presenting with signs and symptoms of acute appendicitis with localized perforation s/p diagnostic laparoscopy, appendectomy, washout and drain placement 01/19, gradually recovering Pain control PRN (due to his history pt declines PO narcotics) CLD, advance as tolerated Encourage OOB/ambulation Procedures Procedures Diagnostic laparoscopy, partial appendectomy, washout, drain placement
[2025-01-21] MEDS: SOD PHOS ADDITIVE 30 MMOL in SODIUM CHLORIDE 0.9% 500 ML 500 ML 62.5 MMOL IV (09:58)
[2025-01-21] MEDS: GABAPENTIN 300 MG CAPSULE PO ×2 (10:01→21:21)
[2025-01-21] MEDS: hydrALAZINE INJ 20 MG/ML VIAL 10 MG IV ×2 (10:01→12:52)
[2025-01-21] MEDS: traMADol HCL 50 MG TABLET PO (14:32)
[2025-01-22] VITALS (9 sets, daily range): BP systolic 133–153; BP diastolic 80–102; PULSE 91–115; RESP 18–96; TEMP 36.3–37.3; O2SAT 92–98; BMI 33.8
[2025-01-22] MEDS: ACETAMINOPHEN IVPB 1,000 MG/100 ML VIAL 250 MG IV ×3 (03:25→21:10)
[2025-01-22] MEDS: traMADol HCL 50 MG TABLET PO ×2 (03:46→17:20)
[2025-01-22] MEDS: PIPER/TAZO INJ 4.5 GM in SODIUM CHLORIDE 0.9% (POP) 100 ML IV ×3 (05:33→21:10)
[2025-01-22 05:47] LABS: Basophils % (Auto) 0 % (0-2.5); Eosinophils # (Auto) 0.1 Thou/mm3 (0.0-0.5); Eosinophils % (Auto) 1 % (0-10); Hematocrit 44.6 % (41.0-53.0); Hemoglobin 15.2 g/dL (13.5-16.0); Immature Granulocytes % (Auto) 1 % (0-0); Immature Granulocytes Auto 0.06 Thou/mm3 (0.00-0.00); Lymphocytes # (Auto) 1.2 Thou/mm3 (1.0-4.8); Lymphocytes % (Auto) 9 % (10-50); Mean Corpuscular HGB Conc 34.1 g/dl (31.0-37.0); Mean Corpuscular Hemoglobin 29.3 pg (25.0-35.0); Mean Corpuscular Volume 86 fL (80-100); Monocytes # (Auto) 1.3 Thou/mm3 (0.0-0.8); Monocytes % (Auto) 10 % (0-12); Neutrophils # (Auto) 10.6 Thou/mm3 (1.8-7.7); Neutrophils % (Auto) 80 % (37-80); Nucleated Red Blood Cell % 0 /100 WBC (0); Platelet Count 261 Thou/mm3 (140-440); RDW Standard Deviation 41.2 fL (35.1-43.9); Red Blood Count 5.19 Miln/mm3 (4.50-5.90); White Blood Count 13.3 Thou/mm3 (3.8-10.6)
[2025-01-22 06:15] LABS: Anion Gap 11 (7-16); BUN/Creatinine Ratio 16 Ratio (12-20); Blood Urea Nitrogen 11 mg/dL (9-23); Calcium 8.6 mg/dL (8.3-10.6); Carbon Dioxide 26.5 mMol/L (20.0-31.0); Chloride 103 mMol/L (98-107); Creatinine (Component) 0.7 mg/dL (0.6-1.3); Glucose 111 mg/dL (74-106); Magnesium 1.8 mg/dL (1.6-2.6); Osmolality,Calculated 279 (275-295); Phosphorous 1.9 mg/dL (2.4-5.1); Potassium 3.4 mMol/L (3.4-5.1); Sodium 140 mMol/L (136-145); eGFR > 60 See Note
[2025-01-22] MEDS: MORPHINE SULF INJ 10 MG/ML VIAL 4 MG IV ×3 (07:46→19:02)
[2025-01-22] MEDS: ONDANSETRON INJ 2 MG/ML INJ 2 ML 4 MG IV (07:51)
[2025-01-22] MEDS: GABAPENTIN 300 MG CAPSULE PO ×2 (09:21→20:23)
[2025-01-23] VITALS: BP 145/99; PULSE 104; TEMP 37.3; O2SAT 90
[2025-01-23] MEDS: traMADol HCL 50 MG TABLET PO (02:08)
[2025-01-23] MEDS: MORPHINE SULF INJ 10 MG/ML VIAL 4 MG IV ×3 (02:46→12:16)
[2025-01-23] MEDS: ACETAMINOPHEN IVPB 1,000 MG/100 ML VIAL 250 MG IV ×2 (03:25→10:58)
[2025-01-23 04:00] VITALS: BP 149/104; PULSE 97; RESP 16; TEMP 37.1; O2SAT 90
[2025-01-23] MEDS: PIPER/TAZO INJ 4.5 GM in SODIUM CHLORIDE 0.9% (POP) 100 ML IV (05:11)
[2025-01-23 05:17] LABS: Basophils # (Auto) 0.1 Thou/mm3 (0.0-0.2); Basophils % (Auto) 1 % (0-2.5); Eosinophils # (Auto) 0.2 Thou/mm3 (0.0-0.5); Eosinophils % (Auto) 2 % (0-10); Hematocrit 40.5 % (41.0-53.0); Hemoglobin 14.3 g/dL (13.5-16.0); Immature Granulocytes % (Auto) 1 % (0-0); Immature Granulocytes Auto 0.09 Thou/mm3 (0.00-0.00); Lymphocytes # (Auto) 1.6 Thou/mm3 (1.0-4.8); Lymphocytes % (Auto) 12 % (10-50); Mean Corpuscular HGB Conc 35.3 g/dl (31.0-37.0); Mean Corpuscular Hemoglobin 28.9 pg (25.0-35.0); Mean Corpuscular Volume 82 fL (80-100); Monocytes # (Auto) 1.5 Thou/mm3 (0.0-0.8); Monocytes % (Auto) 12 % (0-12); Neutrophils # (Auto) 9.7 Thou/mm3 (1.8-7.7); Neutrophils % (Auto) 74 % (37-80); Nucleated Red Blood Cell % 0 /100 WBC (0); Platelet Count 253 Thou/mm3 (140-440); RDW Standard Deviation 39.8 fL (35.1-43.9); Red Blood Count 4.94 Miln/mm3 (4.50-5.90); White Blood Count 13.1 Thou/mm3 (3.8-10.6)
[2025-01-23 06:09] LABS: Anion Gap 12 (7-16); BUN/Creatinine Ratio 17 Ratio (12-20); Blood Urea Nitrogen 10 mg/dL (9-23); Calcium 8.5 mg/dL (8.3-10.6); Carbon Dioxide 27.1 mMol/L (20.0-31.0); Chloride 102 mMol/L (98-107); Creatinine (Component) 0.6 mg/dL (0.6-1.3); Estimated Creatinine Clearance 193.6 mL/min (>60); Glucose 109 mg/dL (74-106); Magnesium 1.8 mg/dL (1.6-2.6); Osmolality,Calculated 281 (275-295); Phosphorous 2.6 mg/dL (2.4-5.1); Potassium 3.3 mMol/L (3.4-5.1); Sodium 141 mMol/L (136-145); eGFR > 60 See Note
--- NOTE | 2025-01-23 07:26 | PD.SURPROG ---
Documentation for date of: 01/22/25 Subjective Subjective Brief History: 49M presenting with abdominal pain and nausea. Patient reports pain began 2 days ago in the morning, initially in the epigastrium but then radiating to the right lower quadrant, which progressively worsened prompting him to seek care in the ER. Pain associated with nausea and an episode of vomiting, with no dysuria or changes in bowel habits. In ER patient has had temp of 99, tachycardia and CT showing signs of acute appendicitis with localized perforation. Patient reports ongoing 10 out of 10 pain despite medications Of note pt has not undergone colonoscopy PMH: None PSH: Cholecystectomy Meds: None Allergies: NKDA Social history: Non-smoker Family history: No known CRC but two maternal uncles had pancreatic cancer Narrative: Slight improvement in pain compared to yesterday, Tmax 99.1, mild HTN which is asymptomatic, had a BM but still prefers to stay on liquid diet as his appetite is minimal. DAI 450cc in past 24 hours which is serosanguinous, pt states he noticed increased output when he laid flat for the first time Exam Vital Signs Temp Pulse Resp BP Pulse Ox O2 Del Method O2 Flow Rate 98.7 F 97 16 149/104 H 90 L Room Air 1 01/23/25 04:00 01/23/25 04:00 01/23/25 04:00 01/23/25 04:00 01/23/25 04:00 01/23/25 04:00 01/21/25 13:33 Constitutional Constitutional: no acute distress Routine Respiratory Exam Respiratory: Present no resp distress Routine Abdominal Exam Abdominal: Present soft, tenderness (mild lower abdominal tenderness) and distended (mild distention, improved from prior exams) Results Results: Laboratory Laboratory results: results reviewed Assessment & Plan Plan 49M presenting with signs and symptoms of acute appendicitis with localized perforation s/p diagnostic laparoscopy, appendectomy, washout and drain placement 01/19, gradually recovering Encourage OOB/ambulation Monitor DAI output Procedures Procedures Diagnostic laparoscopy, partial appendectomy, washout, drain placement
[2025-01-23 07:28] VITALS: PULSE 56; RESP 16; RESP 92
[2025-01-23 07:46] VITALS: BP 163/100; BP 163/104; PULSE 94; RESP 16; TEMP 37.1; O2SAT 94
[2025-01-23] MEDS: POTASSIUM CHLORIDE 20 mEq TABCR 40 MEQ PO (07:58)
[2025-01-23] MEDS: GABAPENTIN 300 MG CAPSULE PO (07:58)
--- NOTE | 2025-01-23 09:26 | PC.SS ---
SS follow up note; Patient is on IV ABX. Positive blood cultures. Patient will discharge back home when medically cleared.
--- NOTE | 2025-01-23 10:01 | PD.SURPROG ---
Documentation for date of: 01/23/25 Subjective Subjective Brief History: 49M presenting with abdominal pain and nausea. Patient reports pain began 2 days ago in the morning, initially in the epigastrium but then radiating to the right lower quadrant, which progressively worsened prompting him to seek care in the ER. Pain associated with nausea and an episode of vomiting, with no dysuria or changes in bowel habits. In ER patient has had temp of 99, tachycardia and CT showing signs of acute appendicitis with localized perforation. Patient reports ongoing 10 out of 10 pain despite medications Of note pt has not undergone colonoscopy PMH: None PSH: Cholecystectomy Meds: None Allergies: NKDA Social history: Non-smoker Family history: No known CRC but two maternal uncles had pancreatic cancer Narrative: Pain well controlled, no nausea, feeling much better today, DAI output 150cc/24h, remaining afebrile and WBC stable at 13 Exam Vital Signs Temp Pulse Resp BP Pulse Ox O2 Del Method O2 Flow Rate 98.7 F 94 16 163/100 H 94 L Room Air 1 01/23/25 07:46 01/23/25 07:46 01/23/25 07:46 01/23/25 07:46 01/23/25 07:46 01/23/25 07:46 01/21/25 13:33 Constitutional Constitutional: no acute distress Routine Respiratory Exam Respiratory: Present no resp distress Routine Abdominal Exam Abdominal: Present soft, distended (Mild distention) and drain (DAI with serosanguineous output); Absent tenderness Results Results: Laboratory Laboratory results: results reviewed Assessment & Plan Plan 49M presenting with signs and symptoms of acute appendicitis with localized perforation s/p diagnostic laparoscopy, appendectomy, washout and drain placement 01/19, gradually recovering DC home today to complete p.o. antibiotic course Procedures Procedures Diagnostic laparoscopy, partial appendectomy, washout, drain placement
--- NOTE | 2025-01-23 10:03 | PD.SURDS ---
Planned Discharge Date 01/23/25 DS: Providers Provider Date of admission: 01/19/25 08:37 Primary care physician: Physician No Primary/Family Admitting Provider: Kaylene Parmar MD Attending Provider on Admission: Kaylene Parmar MD Consults: 01/19/25 01:58 Consult to General Surgery Stat Comment: Acute appendicitis Consulting Provider: Kaylene Parmar 01/21/25 12:58 Consult to Adult Hospitalist Stat Comment: Consulting Provider: Doug Sarmiento Attending Provider on DC: Kaylene Parmar MD Discharging Provider: Kaylene Parmar MD Diagnosis Discharge Diagnosis (1) Gangrenous appendicitis: Status: Acute Problem List Completed Was Problem List Reviewed/Reconciled?: Yes Hospital Course Brief History: 49M presenting with abdominal pain and nausea. Patient reports pain began 2 days ago in the morning, initially in the epigastrium but then radiating to the right lower quadrant, which progressively worsened prompting him to seek care in the ER. Pain associated with nausea and an episode of vomiting, with no dysuria or changes in bowel habits. In ER patient has had temp of 99, tachycardia and CT showing signs of acute appendicitis with localized perforation. Patient reports ongoing 10 out of 10 pain despite medications Of note pt has not undergone colonoscopy PMH: None PSH: Cholecystectomy Meds: None Allergies: NKDA Social history: Non-smoker Family history: No known CRC but two maternal uncles had pancreatic cancer Exam Vital Signs Temp Pulse Resp BP Pulse Ox O2 Del Method O2 Flow Rate 98.7 F 94 16 163/100 H 94 L Room Air 1 01/23/25 07:46 01/23/25 07:46 01/23/25 07:46 01/23/25 07:46 01/23/25 07:46 01/23/25 07:46 01/21/25 13:33 Discharge Plan Plan Patient Disposition: HOME (Self Care) Prescriptions/Referrals Prescriptions/Med Rec: New ibuprofen 800 mg tablet 800 mg PO Q6H PRN (Reason: pain) Qty: 30 0RF Referrals: Kaylene Parmar MD [Physician] - (You will receive a phone call to confirm a follow-up appointment with me next week) No Primary/Family,Physician [Primary Care Provider] - Patient/Caregiver Discharge Instructions Other Discharge Activity Instructions:: Avoid lifting objects greater than 10 pounds for 6 weeks Empty your drain at the same time every day and record the output Cover the drain with a plastic bag while you shower If you develop worsening pain, nausea/vomiting or fever please seek care in ER Your incisions have skin glue on them which will fall off on its own and does not need to be replaced Your stitches will not need to be removed Education Materials: Appendectomy Laparoscopic Dc, Preventing Surgical Site Infections Print Language: Turkmen Stand Alone Forms: [facility] Award Info., Patient Portal Info Letter Discharge Order Discharge Orders: Discharge (Routine); Ordered 01/23/25 Ordered By: Kaylene Parmar Results Results: Laboratory Laboratory results: results reviewed Procedures Procedures Diagnostic laparoscopy, partial appendectomy, washout, drain placement
[2025-01-23 11:49] VITALS: BP 163/110; BP 166/110; PULSE 106; RESP 18; TEMP 37.2; O2SAT 95
== END 2025-01-23 14:10 | disposition home or self-care (01) | DRG 233 ==
LOC: SERX 01-19 02:00 → SERHOLD 01-19 09:03 → S3SX 01-19 15:24
PROVIDERS: Admitting Provider Surgery; Emergency Provider Emergency Medicine; Visit Provider Surgery
PROC: 0DTJ4ZZ Resection of Appendix, Percutaneous Endoscopic Approach (ICD-10-PCS; CPT 44970; principal; 2025-01-19 11:30)
DX: K35.32 Acute appendicitis with perforation, localized peritonitis, and gangrene, without abscess (principal); R00.0 Tachycardia, unspecified; I10 Essential (primary) hypertension; K56.7 Ileus, unspecified
CPT/HCPCS: 36415; 71045; 74178; 80048; 80053; 80307; 80320; 81001; 83605; 83690; 83735; 84100; 84145; 85025; 85610; 87040; 87076; 93005; 96361; 96365; 96366; 96368; 96375; 96376; 99291; A4217; A4649; J0131; J0360; J1100; J1171; J1885; J2250; J2270; J2371; J2405; J2543; J2704; J3010; J3490; J7030; J7040; Q9967; A9270; G0480

== ENCOUNTER 2025-01-30 12:54 | Outpatient (AMB) | payer MEDICAID, SELFPAY ==
[2025-01-30 13:03] VITALS: BP 134/92; PULSE 90; RESP 18; TEMP 36.6; O2SAT 95; BMI 32.9
--- NOTE | 2025-01-30 13:03 | PD.GSCLVISIT ---
[facility] Signs - [facility] 01/30/25 13:03 Height 1.83 m Height Method Stated Weight 110.393 kg Weight Measurement Method Standing Scale BMI 32.9 BP 134/92 H Blood Pressure Source Automatic Cuff Blood Pressure Location Left Upper Arm Position Sitting Respiration 18 Pulse 90 Pulse Source Monitor Temp 97.8 F Temp Source Temporal Artery Scan Pulse Oximetry (%) 95 Oxygen Delivery Method Room Air Med/Allergies Allergies & Medications Allergies No Known Allergies Allergy (Verified 01/30/25 13:05) Medication Reconciliation amoxicillin 875 mg-potassium clavulanate 125 mg tablet 1 tab PO Q12H #10 tabs 01/23/25 [Rx Confirmed 01/30/25] ibuprofen 800 mg tablet 800 mg PO Q6H PRN pain #30 tabs 01/23/25 [Rx Confirmed 01/30/25] MA Intake Visit Data Collection New Patient or Established: Established Patient (seen at [facility] within 3 years) Seen by Clinical Staff ONLY (RN/MA): No Reason for Visit:: REMOVAL DRAIN Pain Present Currently: No (SORENESS) Pain Location: Abdomen PCP or OBGYN visit in last 3 months: Yes Hx Now: No Do You Feel Safe at Home: Yes Authorities Contacted: N/A Smoking Status Smoking Status: Former smoker Immunization / Flu Flu Vaccine in the Last 12 Months: No Flu Vaccine Exclusion Criteria: No Exclusion Criteria Past Medical History Past Medical History NEUROLOGIC: Negative Seizures CARDIAC: Positive Hypertension; Negative Cardiac Disorders or Congestive Heart Failure RESPIRATORY: Positive Asthma (no med needed for past 25 yrs per pt); Negative Chronic Obstructive Pulmonary Disease (COPD) GASTROINTESTINAL: Positive Gall Bladder Disease GENITOURINARY: Negative Renal Disease ENDOCRINE: Negative Diabetes Mellitus Type 1 or Diabetes Mellitus Type 2 HEMATOLOGIC: Negative Sickle Cell Disease OTHER HISTORY: Negative Blood Transfusions or Anesthesia Reactions Social History SMOKING STATUS: Smoking status: Former smoker LIVES WITH: Lives With: Family HPI HPI Narrative 49M presenting with signs and symptoms of acute appendicitis with localized perforation s/p diagnostic laparoscopy, appendectomy, washout and drain placement 01/19, discharged 01/23 here for planned follow up. Pt was discharged with DAI in place as it was having >100cc output in 24h; today he notes the drainage has significantly decreased, he first emptied 60cc but has had so little output he hasn't had to empty it for the past 2 days. He has mild soreness at the LLQ but it is improved with ibuprofen, and he denies nausea/vomiting, fever and chills. His appetite has returned to normal and he is having regular bladder and bowel function ROS Review of Systems Systems Reviewed: All systems reviewed, normal except as documented Objective/Exam General General Appearance: alert, cooperative and well groomed Resp Respiratory exam: Absent respiratory distress Abdominal Abdominal exam: Present soft, incision (c/d/i, no erythema, no fluctuance or tenderness) and other (DAI with dark sanguinous output in tubing, removed intact today); Absent distention or tenderness Results Pathology of appendix reviewed Assessment & Plan Diagnosis / Problem List (1) Gangrenous appendicitis: Status: Acute Assessment & Plan: 49M presenting with signs and symptoms of acute appendicitis with localized perforation s/p diagnostic laparoscopy, appendectomy, washout and drain placement 01/19, recovering well with drain removed today. As pt has never had a colonoscopy I recommended screening after he is fully healed, no sooner than Apr 2025. All questions were answered and pt is agreeable with this plan Plan: F/u in 2 mos Office Procedures GNS Level of Care Nursing/Assessment Patient Status: Established Patient Nursing Assessment/Reassesment: Medication Reconciliation, Update PMH in EMR and Vital Signs Coordination of Care: Complex Care and Chronic Disease 1-5, Consent,records obtained, informed consent, Education Simp Pt/Fam, Results/Orders obtained and Staff clarify orders Established Patient Charge Established Patient Point Assignment: 90 Established Patient Point Charge: EP Level 3 (80-115) Patient Portal Questionaires Social History Tobacco History Smoking Status: Former smoker Domestic Abuse History Do You Feel Safe at Home: Yes Review of Systems Report any current symptoms Only answer those that you have currently: Past Medical History Past Medical History Have you ever been diagnosed with any of the following: Neurological Problems Seizures: No Cardiology Problems Congestive Heart Failure: No Hypertension: Yes Respiratory Problems Chronic Obstructive Pulmonary Disease (COPD): No Asthma: Yes (no med needed for past 25 yrs per pt) Stomache/Intestinal Problems Gall Bladder Disease: Yes Genital/Urinary Problems Renal Disease: No Endocrine Problems Diabetes Mellitus Type 1: No Diabetes Mellitus Type 2: No Blood Problems Sickle Cell Disease: No Other Problems Blood Transfusions: No Anesthesia Reactions: No
== END 2025-01-30 13:36 | disposition home or self-care (01) ==
LOC: HODSRG 12:54
PROVIDERS: Supervising Provider Surgery; Visit Provider Surgery
DX: Z48.815 Encounter for surgical aftercare following surgery on the digestive system (principal)
CPT/HCPCS: 99213; G0463

== ENCOUNTER 2025-02-16 17:10 | Emergency (ER) | payer MEDICAID, SELFPAY ==
[2025-02-16 18:19] VITALS: BP 147/91; PULSE 104; RESP 18; TEMP 36.9; BMI 32.5
--- NOTE | 2025-02-16 18:24 | XR_ITS ---
Examination: CT abdomen with intravenous contrast CT pelvis with intravenous contrast 2-D coronal reconstructions 2-D sagittal reconstructions Date and time of exam:February 16, 20252021 hours Comparison January 18, 2025 INDICATIONS: Left lower abdominal pain today. CTDI: vol (mGy) 12 DLP: (mGycm) 723 Technique: Multiple axial sections of the abdomen and pelvis have been obtained. 64 slice high-resolution scanner used. 3 mm axial sections have been obtained, post intravenous injection 60 cc Isovue 370 2-D sagittal, coronal reconstructions obtained. Low dose protocols were performed. One or more of the following dose reduction techniques were used; automated exposure control, adjustment of the mA and/or KV according to patient size, use of iterative reconstruction technique. Findings: No focal liver or splenic lesion No gallstones 7 mm right renal calculus Aorta normal size Absent appendix Colonic diverticulosis, no diverticulitis Urinary bladder intact Grade 1 spondylolisthesis of L5 on S1 IMPRESSION: 7 mm nonobstructing right renal calculus Abdomen appendix Colonic diverticulosis, no diverticulitis
--- NOTE | 2025-02-16 18:25 | EDNOTE_ITS ---
ED Abdominal Pain RME/HPI General Chief Complaint: Abdominal Pain Stated complaint: Abdominal pain on left side, post op X 4 weeks Time seen by provider: 02/16/25 18:22 Arrival date/time: 02/16/25 17:10 RME / HPI RME / HPI narrative: 49-year-old male patient came in for evaluation regarding left lower abdominal pain. Patient is having worsening pain for the last 1 week, described as dull ache, worse with positional change. Denies any fever vomiting diarrhea or constipation. Patient is 4 weeks postop regarding ruptured appendicitis status post appendectomy. Related Data Previous Rx's ?Medication ?Instructions ?Recorded amoxicillin 875 mg-potassium 1 tab PO Q12H #10 tabs clavulanate 125 mg tablet ibuprofen 800 mg tablet 800 mg PO Q6H PRN pain #30 t abs 01/23/25 dicyclomine 20 mg tablet 20 mg PO QID PRN abdominal p ain 02/16/25 #30 tabs Allergies Allergy/AdvReac Type Severity Reaction Status Date / Time No Known Allergies Allergy Verified 02/16/25 17:16 Review of Systems Review of Systems Narrative Review of Systems: Review of system reviewed and within normal limits except mentioned in HPI ED Exam Narrative Physical exam: VITAL SIGNS: Reviewed. GENERAL APPEARANCE: Alert and interactive, follows commands, no acute distress, HEAD AND FACE: Non-traumatic. ENT: PERRL, pink conjunctivitis, eyelid no trauma, Mucous membrane moist. NECK: Supple, nontender, no nuchal rigidity. CHEST: No tenderness, no crepitus, no paradoxical movement, no retractions. LUNGS: Clear, well ventilated, symmetric, no rales, no wheezing, no ronchi, no stridor, good breath sounds bilaterally. HEART: Regular rate, regular rhythm, no murmur, no gallops. ABDOMEN: Soft, positive bowel sounds, nondistended, no guarding, left lower quadrant tenderness,, no rebound, no masses, RECTAL: Deferred. GENITAL: Deferred. NEUROLOGICAL: Gross motor function intact sensory function intact, Appropriate for age. MUSCULOSKELETAL: low back nontender, full range of motion. EXTREMITIES: Nontender, full range of motion. SKIN: Color pink, dry, no rash, no lacerations, no abrasions, no contusions. LYMPHATICS: Deferred. Course Quality Measures none Orders Category Date Time Status CT Screening NOW Care 02/16/25 18:24 Active IV [Insert IV] NOW Care 02/16/25 19:[address] abdomen pelvis w con Stat Exams 02/16/25 18:24 Completed CBC Stat Lab 02/16/25 18:47 Completed Comprehensive Metabolic Panel Stat Lab 02/16/25 18:47 Completed Lipase Stat Lab 02/16/25 18:47 Completed Partial Thromboplastin Time Stat Lab 02/16/25 18:47 Completed Urinalysis, C/S if Indicated Stat Lab 02/16/25 18:37 Completed Urine Culture Stat Lab 02/16/25 18:37 Received HYDROcodone/APAP 10/325 [[place] 10/325] Med 02/16/25 22:25 Discontinued 1 tab PO X1 ONE Ketorolac Inj [Toradol Inj] Med 02/16/25 18:24 Discontinued 30 mg IVP X1 ONE Vital Signs Vital signs: Vital Signs Temperature 98.5 F 02/16/25 18:19 Pulse Rate 104 H 02/16/25 18:19 Respiratory Rate 18 02/16/25 18:19 Blood Pressure 147/91 H 02/16/25 18:19 Abdominal Pain MDM MDM Narrative [facility] Narrative:: 49-year-old male patient came in for evaluation regarding left lower abdominal pain. Patient is having worsening pain for the last 1 week, described as dull ache, worse with positional change. Denies any fever vomiting diarrhea or constipation. Patient is 4 weeks postop regarding ruptured appendicitis status post appendectomy. Patient's workup today all came back unremarkable no leukocytosis, CMP unremarkable, urinalysis no UTI. CT scan of the abdomen and pelvis also came back unremarkable results discussed with the patient. Patient was advised to closely follow-up with his general surgeon who did the surgery appendectomy 4 weeks ago. Patient stable for discharge home Patient data External records reviewed:: None Clinical information provided by:: patient Social determinants that could affect healthcare access:: none Patient has the following chronic illnesses:: None How is presenting disease/condition affected by chronic disease/condition?: no chronic disease Evaluation data The following diagnostics were reviewed and interpreted by me:: lab results and radiology exam(s) Lab and/or radiology exams considered but not ordered:: None Interpretation Summary: See results MDM Medications / Prescriptions Medications or Prescriptions considered but not ordered:: None Medication administrations:: Medication Administration History Discontinued Medications Hydrocodone Bitart/Acetaminophen (Hydrocodone/Apap 10/325 Tab) 1 tab PO X1 ONE Stop: 02/16/25 22:26 Ketorolac Tromethamine (Ketorolac Inj 30 Mg/Ml Vial) 30 mg IVP X1 ONE Stop: 02/16/25 18:25 Last Admin: 02/16/25 19:52 Dose: 30 mg Documented By: MYLENE Enamorado Torclaudia IM Consultations Consultation(s) initiated? (list below): No Diagnosis Differential diagnosis abdominal pain: abdominal pain, constipation and diverticulitis Most likely diagnosis given after review of the tests above:: Abdominal pain Admission Indicated Admission indicated?: not indicated Explain why admission is indicated or not indicated:: None Admission Request Was there a request for admission?: No Disposition Plan Disposition Plan: Discharge Discharge Attestation Discharge Attestation: The patient was given an opportunity to ask questions and understood the discharge instructions. Discharge instructions specifically effects, indications for sooner follow up or return to the emergency department, and the expected course of current diagnosis. Patient condition: Stable Discharge Plan Plan Patient Disposition: HOME (Self Care) Discharge Disposition comment: Stable Prescriptions/Referrals Prescriptions/Med Rec: New dicyclomine 20 mg tablet 20 mg PO QID PRN (Reason: abdominal pain) Qty: 30 0RF No Action ibuprofen 800 mg tablet 800 mg PO Q6H PRN (Reason: pain) Qty: 30 0RF amoxicillin-pot clavulanate 875-125 mg tablet 1 tab PO Q12H Qty: 10 0RF Referrals: No Primary/Family,Physician [Primary Care Provider] - In 1 week Problem List Clinical Impression: Abdominal pain Patient/Caregiver Discharge Instructions Discharge Activity: activity as tolerated Education Materials: Abdominal Pain Additional Instructions: Thank you for the opportunity for serving you today. You are stable for discharged . You are advised to: Follow-up with your surgeon, next week Return to ED for worsening of symptoms Increase oral fluids Take medication as prescribed Print Language: Japanese Stand Alone Forms: [facility] Award Info., Patient Portal Info Letter
[2025-02-16 18:47] LABS: Collection Type, Urine Clean Catch
[2025-02-16 18:59] LABS: Basophils # (Auto) 0.1 Thou/mm3 (0.0-0.2); Basophils % (Auto) 1 % (0-2.5); Eosinophils # (Auto) 0.3 Thou/mm3 (0.0-0.5); Eosinophils % (Auto) 3 % (0-10); Hematocrit 40.5 % (41.0-53.0); Hemoglobin 14.8 g/dL (13.5-16.0); Immature Granulocytes % (Auto) 0 % (0-0); Immature Granulocytes Auto 0.03 Thou/mm3 (0.00-0.00); Lymphocytes % (Auto) 21 % (10-50); Mean Corpuscular HGB Conc 36.5 g/dl (31.0-37.0); Mean Corpuscular Hemoglobin 29.6 pg (25.0-35.0); Mean Corpuscular Volume 81 fL (80-100); Monocytes # (Auto) 0.8 Thou/mm3 (0.0-0.8); Monocytes % (Auto) 9 % (0-12); Neutrophils # (Auto) 6.2 Thou/mm3 (1.8-7.7); Neutrophils % (Auto) 67 % (37-80); Nucleated Red Blood Cell % 0 /100 WBC (0); Platelet Count 295 Thou/mm3 (140-440); RDW Standard Deviation 37.1 fL (35.1-43.9); White Blood Count 9.3 Thou/mm3 (3.8-10.6)
[2025-02-16 19:02] LABS: Bacteria,Urine 1+; Bilirubin,Urine Negative (Negative); Blood,Urine Negative (Negative); Clarity,Urine Clear (Clear/Hazy); Color,Urine Yellow (Lt Yel-Yel); Glucose, Urine Negative (Negative); Ketones,Urine Negative (Negative); Leukocyte Esterase,Urine Negative (Negative); Nitrite,Urine Negative (Negative); Protein,Urine Trace (Neg - Trace); RBC,Urine 4 /hpf (0-3); Squamous Epithelial Cell,Urine < 1 /hpf (0-5); Urobilinogen,Urine Negative mg/dL (0.0-1.0); WBC,Urine 1 /hpf (0-5)
[2025-02-16 19:03] LABS: Culture Indicated,Urine Yes
[2025-02-16 19:04] LABS: Sperm,Urine Present
[2025-02-16 19:14] LABS: Partial Thromboplastin Time 27.6 Seconds (22.0-36.0)
[2025-02-16 19:36] LABS: Alanine Aminotransferase 52 U/L (10-49); Albumin, Serum 4.8 gm/dL (3.5-5.0); Alkaline Phosphatase 87 U/L (46-116); Anion Gap 11 (7-16); Aspartate Amino Transferase 22 U/L (0-34); BUN/Creatinine Ratio 10 Ratio (12-20); Bilirubin,Total 0.3 mg/dL (0.3-1.2); Blood Urea Nitrogen 9 mg/dL (9-23); Calcium 9.6 mg/dL (8.3-10.6); Calcium (Corrected) 9.6 mg/dL (8.5-10.1); Carbon Dioxide 23.6 mMol/L (20.0-31.0); Chloride 107 mMol/L (98-107); Creatinine (Component) 0.9 mg/dL (0.6-1.3); Estimated Creatinine Clearance 126.5 mL/min (>60); Globulin 2.4 gm/dL (2.3-3.5); Glucose 164 mg/dL (74-106); Lipase 34 U/L (12-53); Osmolality,Calculated 285 (275-295); Potassium 4.1 mMol/L (3.4-5.1); Sodium 142 mMol/L (136-145); Total Protein 7.2 gm/dL (5.7-8.2); eGFR > 60 See Note
[2025-02-16] MEDS: KETOROLAC INJ 30 MG/ML VIAL IVP (19:52)
[2025-02-16 20:00] VITALS: BP 145/99; PULSE 93; RESP 18; TEMP 37.1; O2SAT 93
--- NOTE | 2025-02-16 21:56 | PC.NURSE ---
Pt had concern regarding IV site being numb and swollen documenting nurse flushed iv, iv had no resistant when flushing, no blood pull back. will notify nurse in charge of patient
[2025-02-16 22:00] VITALS: BP 164/108; PULSE 77; RESP 18; TEMP 36.9; O2SAT 93
[2025-02-16 23:09] VITALS: PULSE 79; RESP 18; TEMP 36.8; O2SAT 96
== END 2025-02-16 23:15 | disposition home or self-care (01) ==
PROVIDERS: Nurse Practitioner Family; Emergency Provider Emergency Medicine
DX: R10.32 Left lower quadrant pain (principal); K57.30 Diverticulosis of large intestine without perforation or abscess without bleeding; N20.0 Calculus of kidney; M43.17 Spondylolisthesis, lumbosacral region; Z90.49 Acquired absence of other specified parts of digestive tract
CPT/HCPCS: 36415; 74177; 80053; 81001; 83690; 85025; 85730; 87086; 96374; 99285; A4649; J1885; Q9967

== ENCOUNTER 2025-02-18 11:41 | Outpatient (AMB) | payer MEDICAID, SELFPAY ==
[2025-02-18 11:49] VITALS: BP 134/89; PULSE 86; RESP 19; TEMP 36.2; O2SAT 96; BMI 33.2
--- NOTE | 2025-02-18 11:49 | PD.GSCLVISIT ---
Vital Signs - [facility] 02/18/25 11:49 Height 1.83 m Height Method Stated Weight 111.272 kg Weight Measurement Method Standing Scale BMI 33.2 BP 134/89 H Blood Pressure Source Automatic Cuff Blood Pressure Location Left Upper Arm Position Sitting Respiration 19 Pulse 86 Pulse Source Monitor Temp 97.1 F Temp Source Temporal Artery Scan Pulse Oximetry (%) 96 Oxygen Delivery Method Room Air Med/Allergies Allergies & Medications Allergies No Known Allergies Allergy (Verified 02/16/25 17:16) Medication Reconciliation amoxicillin 875 mg-potassium clavulanate 125 mg tablet 1 tab PO Q12H #10 tabs 01/23/25 [Rx Confirmed 02/18/25] ibuprofen 800 mg tablet 800 mg PO Q6H PRN pain #30 tabs 01/23/25 [Rx Confirmed 02/18/25] dicyclomine 20 mg tablet 20 mg PO QID PRN abdominal pain #30 tabs 02/16/25 [Rx Confirmed 02/18/25] cyclobenzaprine 10 mg tablet 10 mg PO TID muscle pain #90 tabs 02/18/25 [Rx] lidocaine 5 % topical patch 1 patch topical QDAY PRN pain #30 ea 02/18/25 [Rx] MA Intake Visit Data Collection New Patient or Established: Established Patient (seen at [facility] within 3 years) Seen by Clinical Staff ONLY (RN/MA): No Reason for Visit:: FOLLOW UP Pain Present Currently: Yes Pain Location: Abdomen Pain scale:: 5 PCP or OBGYN visit in last 3 months: Yes Hx Now: No Do You Feel Safe at Home: Yes Authorities Contacted: N/A Smoking Status Smoking Status: Former smoker Immunization / Flu Flu Vaccine in the Last 12 Months: No Flu Vaccine Exclusion Criteria: No Exclusion Criteria Past Medical History Past Medical History NEUROLOGIC: Negative Seizures CARDIAC: Positive Hypertension; Negative Cardiac Disorders or Congestive Heart Failure RESPIRATORY: Negative Chronic Obstructive Pulmonary Disease (COPD) or Asthma GASTROINTESTINAL: Positive Gall Bladder Disease GENITOURINARY: Negative Renal Disease ENDOCRINE: Negative Diabetes Mellitus Type 1 or Diabetes Mellitus Type 2 HEMATOLOGIC: Negative Sickle Cell Disease OTHER HISTORY: Negative Blood Transfusions or Anesthesia Reactions Social History SMOKING STATUS: Smoking status: Former smoker LIVES WITH: Lives With: Family HPI HPI Narrative 49M who presented with acute appendicitis s/p diagnostic laparoscopy, appendectomy, washout and drain placement 01/19 here for evaluation of left-sided abdominal pain. Pt states that for the past week he has noted pain in a vertical line to the left of his umbilicus, which is worsened with prolonged sitting and improves with ibuprofen. He has never had similar pain, and denies any fever, nausea and changes in bowel habits. Pt went to ER two days ago for this pain and labs and CT were normal ROS Review of Systems Systems Reviewed: All systems reviewed, normal except as documented Objective/Exam General General Appearance: alert, cooperative and well groomed Resp Respiratory exam: Absent respiratory distress Abdominal Abdominal exam: Present soft and tenderness (moderate tenderness to left of umbilicus, no palpable hernia or mass); Absent distention Assessment & Plan Diagnosis / Problem List (1) Abdominal pain: Status: Acute Assessment & Plan: 49M who presented with acute appendicitis s/p diagnostic laparoscopy, appendectomy, washout and drain placement 01/19 here for evaluation of left-sided abdominal pain. As pt has no systemic symptoms and had a negative CT two days ago, his symptoms seem musculoskeletal in nature. I will prescribe lidocaine patches as well as a muscle relaxer and pt is encouraged to reach out with any concerns or questions Office Procedures GNS Level of Care Nursing/Assessment Patient Status: Established Patient Nursing Assessment/Reassesment: Medication Reconciliation, Update PMH in EMR and Vital Signs Coordination of Care: Complex Care and Chronic Disease 1-5, Consent,records obtained, informed consent, Education Simp Pt/Fam, Results/Orders obtained and Staff clarify orders Established Patient Charge Established Patient Point Assignment: 90 Established Patient Point Charge: EP Level 3 (80-115) Patient Portal Questionaires Social History Tobacco History Smoking Status: Former smoker Domestic Abuse History Do You Feel Safe at Home: Yes Review of Systems Report any current symptoms Only answer those that you have currently: Past Medical History Past Medical History Have you ever been diagnosed with any of the following: Neurological Problems Seizures: No Cardiology Problems Congestive Heart Failure: No Hypertension: Yes Respiratory Problems Chronic Obstructive Pulmonary Disease (COPD): No Asthma: No Stomache/Intestinal Problems Gall Bladder Disease: Yes Genital/Urinary Problems Renal Disease: No Endocrine Problems Diabetes Mellitus Type 1: No Diabetes Mellitus Type 2: No Blood Problems Sickle Cell Disease: No Other Problems Blood Transfusions: No Anesthesia Reactions: No
== END 2025-02-18 11:58 | disposition home or self-care (01) ==
LOC: HODSRG 11:41
PROVIDERS: Supervising Provider Surgery; Visit Provider Surgery
DX: Z48.815 Encounter for surgical aftercare following surgery on the digestive system (principal); R10.9 Unspecified abdominal pain
CPT/HCPCS: 99213; G0463

== ENCOUNTER → 2025-04-09 | Outpatient (CLI) | payer OTHER, SELFPAY ==
--- NOTE | 2025-04-09 07:30 | XR_ITS ---
MRI shoulder, right, without contrast. Date and time: April 09, 2025 0842 hours INDICATIONS: Lifting injury March 2025 with persistent shoulder pain and dislocation age 15 joint clicking Technique: Multiple axial, sagittal and coronal sections of the shoulder have been obtained. Siemens high-resolution 1.5 Leah MRI scanner is utilized. Axial fat-suppressed sections, TR 2350, TE 18 T2-weighted coronal fat-saturated images, TR 3500, TE 7100 T1-weighted coronal images, TR 500, TE 15 T2-weighted sagittal fat-saturated images, TR 3500, TE 57 T1-weighted sagittal sections, TR 504, TE 13. Findings: Supraspinatus tendon insertion is intact. Infraspinatus tendon insertion is intact. Subscapularis insertion is intact. Subscapularis bursa is not seen. Long head of the biceps is in the bicipital groove. No definite tear of the biceps superior labral anchor is seen. Retraction of the musculotendinous junction of the rotator cuff is not seen . Tendinosis pattern is mild. Distance between the acromium and humeral head is 8.9 mm Atrophy of the supraspinatus muscle is mild . Atrophy of the infraspinatus muscle is mild. Sagittal sections demonstrate a horizontal acromion. Acromioclavicular joint demonstrates moderate osteoarthritis. Osacromiale is not identified. Advanced osteoarthritis glenohumeral joint Anterior superior posterior inferior labral tears. Bony glenoid fossa on the sagittal sections does not demonstrate osseous defect. Occult fracture or area of avascular necrosis is not seen. Acromioclavicular joint separation is not visible. Defect in the posterolateral margin of the humeral head is not seen Impression: Rotator cuff intact Anterior superior, posterior, inferior labral tears Significant osteoarthritis glenohumeral joint
== END | disposition home or self-care (01) ==
LOC: SMRI 07:29
PROVIDERS: Referring Provider Family Medicine; Visit Provider Family Medicine
DX: S43.431A Superior glenoid labrum lesion of right shoulder, initial encounter (principal); X58.XXXA Exposure to other specified factors, initial encounter; M19.011 Primary osteoarthritis, right shoulder
CPT/HCPCS: 73221